=== PATIENT | female | born 1970 | race Caucasian/White ===

== ENCOUNTER 2018-09-17 05:59 | Inpatient (IN) | payer SELFPAY ==
[~2018-09-17] VITALS: Ht 172.7 cm; Wt 76.2 kg
[2018-09-17] MEDS ORDERED: ONDANSETRON HCL 4MG/2ML INJ IV STA (08:30)
[2018-09-17] MEDS ORDERED: MORPHINE SULFATE 4 MG/ML CPJ (NOT FOR IM USE) IV STA (08:30)
[2018-09-17] MEDS ORDERED: SODIUM CHLORIDE 0.9% 1,000 ML IV ONE (08:30)
[2018-09-17 08:59] LABS: BASOPHILS % 0.6 % (0.0-2.0); HEMATOCRIT. 44.2 % (36.0-48.0); HEMOGLOBIN. 15.3 g/dL (12.0-16.0); LYMPHOCYTES % 19.4 % (20.0-50.0); MEAN CORPUSCULAR HEMOGLOBIN 34.1 pg (28.0-32.0); MEAN CORPUSCULAR VOLUME 98.5 fL (81.0-99.0); MEAN PLATELET VOLUME 7.9 fl (7.4-10.4); MONOCYTES % 6.1 % (2.0-8.0); NEUTROPHILS % 72.9 % (40.0-76.0); PLATELET 169 x1000/uL (130-400); RED BLOOD CELL COUNT 4.49 mill/uL (4.2-5.4); RED CELL DISTRIBUTION WIDTH 13.5 % (11.6-14.6)
[2018-09-17 09:08] LABS: INR 1.1; PARTIAL THROMBOPLASTIN TIME 26.1 sec (23.4-31.0); PROTHROMBIN TIME 10.9 sec (9.6-11.0)
[2018-09-17 09:11] LABS: CHLORIDE 108 mEq/L (98-107)
[2018-09-17 09:18] LABS: ETHANOL BLOOD 84 mg/dL
[2018-09-17 11:27] LABS: CLARITY URINE CLEAR (CLEAR); COLOR URINE YELLOW (YELLOW); KETONES URINE NEGATIVE (NEGATIVE); LEUKOCYTE ESTERASE URINE NEGATIVE (NEGATIVE); NITRITE URINE NEGATIVE (NEGATIVE); OCCULT BLOOD URINE TRACE (NEGATIVE); PROTEIN URINE NEGATIVE (NEGATIVE); SPECIFIC GRAVITY URINE 1.009 (1.005-1.030); UROBILINOGEN URINE 0.2 E.U./dL (0.2-1.0)
[2018-09-17] MEDS ORDERED: MORPHINE SULFATE 4 MG/ML CPJ (NOT FOR IM USE) IV ONE (11:45)
[2018-09-17] MEDS ORDERED: ONDANSETRON HCL 4MG/2ML INJ IV ONE (11:45)
[2018-09-17 12:02] LABS: *AMPHETAMINES SCREEN URINE NEGATIVE (NEGATIVE); *BARBITURATES SCREEN URINE NEGATIVE (NEGATIVE); *BENZODIAZEPINES SCREEN URINE NEGATIVE (NEGATIVE); *COCAINE SCREEN URINE NEGATIVE (NEGATIVE)
[2018-09-17 12:03] LABS: CANNABINOID URINE SCREEN NEGATIVE (NEGATIVE); METHADONE URINE SCREEN NEGATIVE (NEGATIVE); OPIATES URINE SCREEN PRESUMTIVE POSITIVE (NEGATIVE); PHENCYCLIDINE URINE SCREEN NEGATIVE (NEGATIVE)
[2018-09-17 13:53] VITALS: BP 142/78
[2018-09-17 14:00] VITALS: BP 127/78
[2018-09-17] MEDS ORDERED: DOCU50CA11 MT (14:22)
[2018-09-17] MEDS ORDERED: ERGO400C MT (14:22)
[2018-09-17] MEDS ORDERED: [UNRECOGNIZED DRUG - CODE] PO (14:22)
[2018-09-17] MEDS ORDERED: BENA10TA10 MT (14:22)
[2018-09-17] MEDS ORDERED: MAGNESIUM/ALUMINUM HYDROXIDE/SIMETHICONE 30ML UDC PO PRN (16:00)
[2018-09-17] MEDS ORDERED: ACETAMINOPHEN 325MG TABLET PO PRN (16:00)
[2018-09-17] MEDS ORDERED: LORAZEPAM 2MG/ML CPJ IV PRN (16:00)
[2018-09-17 16:28] VITALS: BP 119/88
[2018-09-17] MEDS ORDERED: MVI, ADULT NO.1 10 ML, FOLIC ACID 1 MG, THIAMINE HCL 100 MG in SODIUM CHLORIDE 0.9% 1,0... IV SCH ×4 (17:30)
[2018-09-17] MEDS: DEXT 5%/0.45% NACL 1000ML 1,000 ML IV SCH (17:42)
[2018-09-17] MEDS: HYDROMORPHONE HCL/PF 2MG/ML CPJ IV PRN (17:51)
[2018-09-17] MEDS: FAMOTIDINE 20MG/2ML VIAL IV SCH (21:28)
[2018-09-17] MEDS: DIPHENHYDRAMINE 50MG/ML VIAL IV PRN (21:29)
[2018-09-17] MEDS: ONDANSETRON HCL 4MG/2ML INJ IV PRN (21:30)
[2018-09-18] VITALS: BP 131/68
[2018-09-18] MEDS: HYDROMORPHONE HCL/PF 2MG/ML CPJ IV PRN ×4 (01:40→22:50)
[2018-09-18] MEDS: ONDANSETRON HCL 4MG/2ML INJ IV PRN (01:40)
[2018-09-18] MEDS: DIPHENHYDRAMINE 50MG/ML VIAL IV PRN ×4 (01:40→17:53)
[2018-09-18 04:00] VITALS: BP 132/83
[2018-09-18 07:42] LABS: EOSINOPHILS % 1.8 % (0.0-5.0); HEMATOCRIT. 37.8 % (36.0-48.0); HEMOGLOBIN. 13.3 g/dL (12.0-16.0); LYMPHOCYTES % 35.2 % (20.0-50.0); MEAN CORPUSCULAR HEMOGLOBIN 34.8 pg (28.0-32.0); MEAN CORPUSCULAR VOLUME 98.8 fL (81.0-99.0); MONOCYTES % 7.4 % (2.0-8.0); NEUTROPHILS % 54.6 % (40.0-76.0); PLATELET 151 x1000/uL (130-400); RED BLOOD CELL COUNT 3.83 mill/uL (4.2-5.4); RED CELL DISTRIBUTION WIDTH 13.1 % (11.6-14.6)
[2018-09-18] MEDS: DEXT 5%/0.45% NACL 1000ML 1,000 ML IV SCH ×2 (07:47→11:04)
[2018-09-18 08:00] VITALS: BP 137/84
[2018-09-18] MEDS: FAMOTIDINE 20MG/2ML VIAL IV SCH ×2 (08:27→21:33)
[2018-09-18 08:48] LABS: CHLORIDE 105 mEq/L (98-107)
[2018-09-18 08:54] LABS: PHOSPHORUS 2.8 mg/dL (2.5-4.9)
[2018-09-18] MEDS ORDERED: POTASSIUM CHLORIDE INJ 40 MEQ in DEXT 5% WATER 500 ML IV SCH (11:00)
[2018-09-18] MEDS ORDERED: MAGNESIUM 2 G PREMIX 50 ML IV SCH (11:00)
[2018-09-18 12:00] VITALS: BP 139/81
[2018-09-18 16:00] VITALS: BP 123/80
[2018-09-18 21:26] VITALS: BP 126/84
[2018-09-19] VITALS: BP 130/86
[2018-09-19] MEDS: DIPHENHYDRAMINE 50MG/ML VIAL IV PRN (00:23)
[2018-09-19 04:00] VITALS: BP 137/80
[2018-09-19 06:29] LABS: CHLORIDE 105 mEq/L (98-107)
[2018-09-19 08:00] VITALS: BP 132/80
[2018-09-19] MEDS: FAMOTIDINE 20MG/2ML VIAL IV SCH (08:47)
[2018-09-19] MEDS: HYDROMORPHONE HCL/PF 2MG/ML CPJ IV PRN (08:47)
[2018-09-19] MEDS: DEXT 5%/0.45% NACL 1000ML 1,000 ML IV SCH (11:04)
[2018-09-19 12:00] VITALS: BP 115/77
[2018-09-19 15:23] VITALS: BP 133/75
[2018-09-19 16:00] VITALS: BP 122/83
== END 2018-09-19 18:33 | disposition home or self-care (01) | DRG 282 ==
LOC: ER 05:59 → 6EST 10:21 → EDBEDREQ 10:25 → EDBEDREQSVC 10:25 → EDBEDREQTM 10:25 → ENRESERV 11:40
PROVIDERS: ADMIT Internal Medicine; ATTEND Internal Medicine
DX: K85.20 Alcohol induced acute pancreatitis without necrosis or infection (principal); I10 Essential (primary) hypertension; Z82.49 Family history of ischemic heart disease and other diseases of the circulatory system; Z83.3 Family history of diabetes mellitus; Z98.51 Tubal ligation status; Z79.899 Other long term (current) drug therapy
CPT/HCPCS: 36415; 71045; 74176; 76705; 80305; 80320; 83605; 83735; 83880; 84100; 84484; 93005; 93970; 96374; 96375; 99285; J1170; J1200; J2060; J2270; J2405; J3411; J3475; J3480; J3490; J7030; J7060; G0480

== ENCOUNTER 2018-09-29 06:03 | Emergency (ER) | payer SELFPAY ==
[~2018-09-29] VITALS: Ht 172.7 cm; Wt 79.0 kg
[~2018-09-29 06:03] MED LIST: BENA10TA10 MT; DOCU50CA11 MT; ERGO400C MT; [UNRECOGNIZED DRUG - CODE] PO
[2018-09-29] MEDS ORDERED: SODIUM CHLORIDE 0.9% 1,000 ML IV ONE (06:37)
[2018-09-29] MEDS ORDERED: FAMOTIDINE 20MG/2ML VIAL IV STA (06:37)
[2018-09-29] MEDS ORDERED: ONDANSETRON HCL 4MG/2ML INJ IV STA (06:37)
[2018-09-29] MEDS ORDERED: MORPHINE SULFATE 4 MG/ML CPJ (NOT FOR IM USE) IV STA (06:37)
[2018-09-29 07:02] LABS: BASOPHILS % 0.4 % (0.0-2.0); EOSINOPHILS % 0.2 % (0.0-5.0); HEMATOCRIT. 39.8 % (36.0-48.0); HEMOGLOBIN. 13.7 g/dL (12.0-16.0); LYMPHOCYTES % 7.8 % (20.0-50.0); MEAN CORPUSCULAR HEMOGLOBIN 34.3 pg (28.0-32.0); MEAN CORPUSCULAR VOLUME 99.5 fL (81.0-99.0); MEAN PLATELET VOLUME 8.2 fl (7.4-10.4); MONOCYTES % 3.1 % (2.0-8.0); NEUTROPHILS % 88.5 % (40.0-76.0); PLATELET 229 x1000/uL (130-400); RED CELL DISTRIBUTION WIDTH 12.7 % (11.6-14.6)
[2018-09-29 07:06] LABS: CHLORIDE 105 mEq/L (98-107)
[2018-09-29 07:10] LABS: AMYLASE 78 IU/L (25-115)
[2018-09-29] MEDS ORDERED: IOHEXOL-300 100 ML BOTTLE ONE (08:25)
[2018-09-29 08:33] LABS: CLARITY URINE CLEAR (CLEAR); COLOR URINE YELLOW (YELLOW); KETONES URINE NEGATIVE (NEGATIVE); LEUKOCYTE ESTERASE URINE NEGATIVE (NEGATIVE); NITRITE URINE NEGATIVE (NEGATIVE); OCCULT BLOOD URINE TRACE (NEGATIVE); PH URINE 6.5 (4.5-8.0); PROTEIN URINE NEGATIVE (NEGATIVE); SPECIFIC GRAVITY URINE 1.022 (1.005-1.030)
[2018-09-29 09:30] VITALS: BP 144/88
== END 2018-09-29 09:49 | disposition home or self-care (01) ==
LOC: ER 06:46
DX: R74.0 Nonspecific elevation of levels of transaminase and lactic acid dehydrogenase [LDH] (principal); I10 Essential (primary) hypertension; Z87.19 Personal history of other diseases of the digestive system; Z98.51 Tubal ligation status; Z87.891 Personal history of nicotine dependence; Z79.899 Other long term (current) drug therapy
CPT/HCPCS: 36415; 74177; 80053; 81003; 81025; 82150; 83690; 85025; 96361; 96374; 96375; 99284; J2270; J2405; J3490; J7030; Q9967

== ENCOUNTER 2020-10-08 13:17 | Emergency (ER) | payer MEDICAID ==
[~2020-10-08] VITALS: Ht 172.7 cm; Wt 78.0 kg
[~2020-10-08 13:17] MED LIST changes: -BENA10TA10 MT; +BENA10TA74 MT
[2020-10-08 13:29] VITALS: BP 180/90
[2020-10-08] MEDS ORDERED: MECLIZINE 25MG TABLET PO ONE (14:45)
[2020-10-08 14:52] LABS: BASOPHILS % 0.6 % (0.0-2.0); EOSINOPHILS % 1.7 % (0.0-5.0); HEMATOCRIT. 42.2 % (36.0-48.0); LYMPHOCYTES % 18.9 % (20.0-50.0); MEAN CORPUSCULAR HEMOGLOBIN 35.8 pg (28.0-32.0); MEAN CORPUSCULAR VOLUME 100.6 fL (81.0-99.0); MEAN PLATELET VOLUME 8.2 fl (7.4-10.4); MONOCYTES % 6.4 % (2.0-8.0); NEUTROPHILS % 72.4 % (40.0-76.0); PLATELET 156 x1000/uL (130-400); RED BLOOD CELL COUNT 4.19 mill/uL (4.2-5.4); RED CELL DISTRIBUTION WIDTH 12.8 % (11.6-14.6)
[2020-10-08 14:57] LABS: CHLORIDE 107 mEq/L (98-107)
[2020-10-08] MEDS ORDERED: MECL-159 MT (17:30)
== END 2020-10-08 18:10 | disposition home or self-care (01) ==
LOC: ER 13:41
DX: R42 Dizziness and giddiness (principal); I10 Essential (primary) hypertension; R94.31 Abnormal electrocardiogram [ECG] [EKG]
CPT/HCPCS: 36415; 70450; 71045; 80053; 83880; 84484; 85025; 93005; 99285; J8597

== ENCOUNTER 2024-05-03 11:06 | Emergency (ER) | payer MEDICAID ==
[~2024-05-03] VITALS: Ht 172.7 cm; Wt 77.0 kg
[~2024-05-03 11:06] MED LIST changes: +MECL-299 MT
[2024-05-03 11:07] VITALS: TEMP 36.9; O2SAT 98
[2024-05-03 11:20] VITALS: BP 170/89; PULSE 85; RESP 18; O2SAT 100
== END 2024-05-03 12:13 | disposition left against medical advice (07) ==
LOC: ER 11:06
DX: R11.0 Nausea (principal); I49.9 Cardiac arrhythmia, unspecified; Z53.21 Procedure and treatment not carried out due to patient leaving prior to being seen by health care provider
CPT/HCPCS: 93005